=== PATIENT | female | born 1995 | race American Indian/Alaskan Native ===

== ENCOUNTER 2017-07-21 08:50 | Emergency (ER) | payer SELFPAY ==
[2017-07-21] MEDS ORDERED: Ibuprofen 800 MG TAB ONE (09:29)
--- NOTE | 2017-07-21 10:13 | RAD ---
TWO VIEWS CHEST: History: Jumping on trampoline and fell off. Right sided rib pain. Cough. FINDINGS: Two views of the chest show normal sized cardiomediastinal silhouette. There is no evidence of consol idation, mass, or pleural effusion. The bones are unremarkable. IMPRESSION: No evidence of acute cardiopulmonary disease. POS: H
== END 2017-07-21 10:01 | disposition home or self-care (01) ==
LOC: ERS 08:50
DX: S20.211A Contusion of right front wall of thorax, initial encounter (principal); Y93.39 Activity, other involving climbing, rappelling and jumping off
CPT/HCPCS: 71046

== ENCOUNTER 2017-08-23 13:28 | Outpatient (CLI) | payer MEDICAID | END 2017-08-23 13:29 | disposition home or self-care (01) | LOC: BICRAD 13:28 | DX: T14.90XA Injury, unspecified, initial encounter (principal) ==